=== PATIENT | male | born 1935 | race Caucasian/White ===

== ENCOUNTER → 2023-12-25 | Outpatient (CLI) | payer MEDICARE ==
[~2023-12-25] MED LIST: Iohexol 300 - 100 ML VIAL IV ONE
[2023-12-25 08:50] LABS: CALCIUM 9.2 mg/dL (8.3-10.5)
== END ==
LOC: RAD 08:09
PROVIDERS: Dermatology MOHS-Micrographic Surgery
DX: C44.42 Squamous cell carcinoma of skin of scalp and neck (principal)
CPT/HCPCS: Q9967

== ENCOUNTER → 2024-02-18 | Outpatient (CLI) | payer MEDICARE | LOC: RAD 10:40 | DX: R22.42 Localized swelling, mass and lump, left lower limb (principal) ==